=== PATIENT | male | born 1985 | race African-American/Black ===

== ENCOUNTER 2017-04-27 00:04 | Emergency (ER) | payer OTHER ==
[~2017-04-27] VITALS: Ht 182.9 cm; Wt 86.2 kg
[2017-04-27] MEDS ORDERED: ALBUTEROL SULF8.5 GM INH (00:25)
[2017-04-27 00:42] VITALS: BP 122/74
[2017-04-27] MEDS ORDERED: OCUFLOX5 ML LEFT EYE (00:44)
[2017-04-27] MEDS ORDERED: NORCO 5-325 TA1 EACH ORAL (00:44)
[2017-04-27] MEDS ORDERED: CYCLOGYL15 ML LEFT EYE (00:44)
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
== END 2017-04-27 01:00 | disposition home or self-care (01) ==
LOC: EMR 00:50
DX: H20.9 Unspecified iridocyclitis (principal); J45.909 Unspecified asthma, uncomplicated
CPT/HCPCS: 99284